=== PATIENT | male | born 1960 | race American Indian/Alaskan Native ===

== ENCOUNTER 2019-06-18 10:56 | Emergency (ER) | payer OTHER ==
[~2019-06-18] VITALS: Ht 170.2 cm; Wt 81.7 kg
[~2019-06-18 10:56] MED LIST: 1ST TIER UNILE1 EAC1 SUBQ; ALLEGRA-D 24 H1 EACH PO; ASPIR 8181 M1 PO; BACTRIM DS TAB1 EACH PO; CIPROFLOXACIN500 M1 PO; DOXYCYCLINE 10100 MG PO; HUMALOG KW100 UNIT/1 SUBQ; HUMALOG PEN SUBQ; HYDROCODONE-AP1 EAC6 PO; LANTUS SUBQ; LANTUS100 UNIT/M SUBQ; LISINOPRIL10 MG PO; LISINOPRIL20 MG PO; NOVOLIN R100 UNIT/3 SUBQ; PLAVIX 75 MG TA75 M1 PO; TESSALON PERLE100 MG PO; TEST STRIPS1 EACH SUBQ; ZANTAC 150MG T150 MG PO
[2019-06-18 11:07] LABS: URINE BILIRUBIN NEGATIVE (Negative); URINE BLOOD NEGATIVE (Negative); URINE CLARITY CLEAR; URINE COLOR YELLOW; URINE GLUCOSE-RANDOM* 3+ (Negative); URINE KETONES NEGATIVE (Negative); URINE LEUKOCYTES NEGATIVE (Negative); URINE NITRITE NEGATIVE (Negative); URINE PROTEIN (DIPSTICK) NEGATIVE (Negative); URINE SPECIFIC GRAVITY 1.025 (1.005-1.035); URINE UROBILINOGEN 0.2 E.U./dl (0.2-1.0)
[2019-06-18 11:26] LABS: ABSOLUTE NEUTROPHILS 4.2 thou/uL (1.4-8.2); BASOPHILS 0.8 % (0.0-2.0); EOSINOPHILS 2.4 % (0.0-3.0); HEMATOCRIT 46.9 % (42.0-52.0); HEMOGLOBIN 16.3 gm/dL (14.0-18.0); LYMPHOCYTES 26.7 % (24.0-44.0); MCH 29.4 pg (26.0-34.0); MCHC 34.8 g/dL (28.0-37.0); MCV 84.4 fL (80.0-100.0); MONOCYTES 8.3 % (1.0-8.0); PLATELET COUNT 184 thou/uL (150-400); POLYS 61.8 % (36.0-66.0); RBC 5.55 mil/uL (4.50-6.00); RDW 14.1 % (10.5-14.5); WBC 6.8 thou/uL (4.0-11.0)
[2019-06-18 11:52] LABS: CALCIUM 8.8 mg/dL (8.5-10.1); CREATININE 0.9 mg/dL (0.7-1.3); POTASSIUM 3.5 mmol/L (3.5-5.1)
[2019-06-18 11:58] LABS: ALBUMIN 3.3 g/dL (3.4-5.0); TOTAL BILIRUBIN 0.5 mg/dL (<0.1-1.0); TOTAL PROTEIN 7.4 g/dL (6.4-8.2)
[2019-06-18] MEDS ORDERED: LANTUS100 UNIT/M SUBQ (12:31)
[2019-06-18 14:53] VITALS: BP 159/97
== END 2019-06-18 14:53 | disposition home or self-care (01) ==
LOC: ER 10:56
PROVIDERS: Emergency Medicine
DX: E11.65 Type 2 diabetes mellitus with hyperglycemia (principal); F17.210 Nicotine dependence, cigarettes, uncomplicated; I10 Essential (primary) hypertension; I25.10 Atherosclerotic heart disease of native coronary artery without angina pectoris; I25.2 Old myocardial infarction; Z88.5 Allergy status to narcotic agent; Z79.4 Long term (current) use of insulin; Z88.0 Allergy status to penicillin; Z79.82 Long term (current) use of aspirin